=== PATIENT | male | born 1980 | race American Indian/Alaskan Native ===

== ENCOUNTER 2018-11-24 22:16 | Observation (INO) | payer OTHER ==
[2018-11-25] VITALS: BMI 21.4
[2018-11-25 00:51] LABS: BASO # 0.02 K/mm3 (0.0-2.0); BASO % 0.2 % (0.0-3.0); EOS # 0.1 (0.0-0.7); EOS % 1.7 % (1.5-5.0); HEMOGLOBIN 13.9 g/dL (14.0-18.0); LYMPH % 36.5 % (22.0-35.0); MEAN CELL VOLUME 94.5 fl (80.0-105.0); MEAN CORPUSCULAR HEMOGLOBIN 31.7 pg (25.0-35.0); MEAN CORPUSCULAR HGB CONC 33.5 g/dl (31.0-37.0); MEAN PLATELET VOLUME 9.5 fl (7.0-11.0); MONO # 0.6 (0.1-0.6); MONO % 7.8 % (1.0-6.0); RBC 4.39 10^6/uL (3.5-6.1); RED CELL DISTRIBUTION WIDTH 13.5 % (11.5-14.5); WHITE BLOOD COUNT 8.2 10^3/uL (4.5-11.0)
--- NOTE | 2018-11-25 01:07 | ED PDOC ---
Arrival/HPI <EstrellaDariusz - Last Filed: 11/25/18 01:17> - General Historian: Patient, Spouse - History of Present Illness Narrative History of Present Illness (Text): 11/25/18 00:10 Anton Christian is a 38 year old male who presents to the Emergency department c omplaining of 3-4 weeks history of constant left mid abdominal pain, worsened with coughing. Patient noted intermittent bloody stools, described as bright blood mixed with stools. Patient denies any nausea, vomiting, diarrhea, urinary symptoms, fever, chills, injury/trauma, or any other complaints. Patient states he has not had this pain in the past. <Vanessa Foley PA-C - Last Filed: 11/25/18 02:43> - General Chief Complaint: Abdominal Pain Time Seen by Provider: 11/24/18 22:55 Past Medical History - Provider Review Nursing Documentation Reviewed: Yes - Psychiatric Hx Substance Use: Yes <Vanessa Foley PA-C - Last Filed: 11/25/18 02:43> Family/Social History - Physician Review Nursing Documentation Reviewed: Yes Family/Social History: Unknown Family HX Smoking Status: Heavy Smoker > 10 Cigarettes Daily Hx Alcohol Use: Yes Frequency of alcohol use: Socially Hx Substance Use: Yes Substance used: Marijuana <Vanessa Foley PA-C - Last Filed: 11/25/18 02:43> Allergies/Home Meds <Dariusz De La Rosa - Last Filed: 11/25/18 01:17> <Vanessa Foley PA-C - Last Filed: 11/25/18 02:43> Allergies/Adverse Reactions: Allergies No Known Allergies Allergy (Verified 11/24/18 23:59) Home Medications: Home Meds Medication Instructions Recorded Confirmed No Known Home Med 11/24/18 11/24/18 Review of Systems - Physician Review All systems were reviewed & negative as marked: Yes - Review of Systems Constitutional: Normal. absent: Fevers Eyes: Normal ENT: Normal Respiratory: Normal. absent: SOB, Cough Cardiovascular: Normal. absent: Chest Pain Gastrointestinal: Abdominal Pain, Hematochezia Genitourinary Male: Normal. absent: Dysuria, Frequency, Hematuria, Urinary Output Changes Musculoskeletal: Normal. absent: Back Pain, Neck Pain Skin: Normal. absent: Rash Neurological: Normal. absent: Headache, Dizziness Endocrine: Normal Hemo/Lymphatic: Normal Psychiatric: Normal <Vanessa Foley PA-C - Last Filed: 11/25/18 02:43> Physical Exam Vital Signs Temp Pulse Resp BP Pulse Ox 11/25/18 00:15 98.3 F 68 18 118/70 100 <Dariusz De La Rosa - Last Filed: 11/25/18 01:17> Vital Signs Reviewed: Yes Vital Signs Temp Pulse Resp BP Pulse Ox 11/25/18 00:15 98.3 F 68 18 118/70 100 Temperature: Afebrile Blood Pressure: Normal Pulse: Regular Respiratory Rate: Normal Appearance: Positive for: Well-Appearing, Non-Toxic, Comfortable Pain Distress: None Mental Status: Positive for: Alert and Oriented X 3 - Systems Exam Head: Present: Atraumatic, Normocephalic Pupils: Present: PERRL Extroacular Muscles: Present: EOMI Conjunctiva: Present: Normal Mouth: Present: Moist Mucous Membranes Neck: Present: Normal Range of Motion Respiratory/Chest: Present: Clear to Auscultation, Good Air Exchange. No: Respiratory Distress, Accessory Muscle Use Cardiovascular: Present: Regular Rate and Rhythm, Normal S1, S2. No: Murmurs Abdomen: Present: Tenderness (LUQ/left mid abdominal tenderness). No: Distention, Peritoneal Signs Rectal: Present: Normal Rectal Tone, Other (RN Nadine present as artificial insemination technician). No: Rectal Tenderness Back: Present: Normal Inspection Upper Extremity: Present: Normal Inspection. No: Cyanosis, Edema Lower Extremity: Present: Normal Inspection. No: Edema Neurological: Present: GCS=15, CN II-XII Intact, Speech Normal Skin: Present: Warm, Dry, Normal Color. No: Rashes Psychiatric: Present: Alert, Oriented x 3, Normal Insight, Normal Concentration <Vanessa Foley PA-C - Last Filed: 11/25/18 02:43> Medical Decision Making - Lab Interpretations Lab Results: Total Bilirubin 0.4 mg/dL (0.2-1.3) 11/25/18 00:40 AST 35 U/L (17-59) 11/25/18 00:40 ALT 20 U/L (7-56) 11/25/18 00:40 Alkaline Phosphatase 66 U/L (38-126) 11/25/18 00:40 Total Protein 6.9 g/dL (5.8-8.3) 11/25/18 00:40 Albumin 4.2 g/dL (3.0-4.8) 11/25/18 00:40 Globulin 2.6 gm/dL 11/25/18 00:40 Albumin/Globulin Ratio 1.6 (1.1-1.8) 11/25/18 00:40 Lipase 96 U/L (23-300) 11/25/18 00:40 - RAD Interpretation Radiology Orders: 11/25/18 01:14 ABD & PELVIS IV CONTRAST ONLY [CT] Stat - Medication Orders Current Medication Orders: Discontinued Medications Famotidine (Pepcid) 20 mg IVP STAT STA Stop: 11/25/18 00:14 Last Admin: 11/25/18 00:30 Dose: 20 mg IVP Administration Document 11/25/18 00:30 AD (Rec: 11/25/18 00:[address]) Charges for Administration # of IVP Administrations 1 Ketorolac Tromethamine (Toradol) 30 mg IVP STAT STA Stop: 11/25/18 00:13 Last Admin: 11/25/18 00:30 Dose: 30 mg MAR Pain Assessment Document 11/25/18 00:30 AD (Rec: 11/25/18 00:43 AD [place] [id number]-) Pain Reassessment Is this a pain reassessment? No Location Left, Right or Bilateral Left Pain Location Body Site Abdomen Description Intensity of Pain at present 8 Pain Behavior Facial Grimacing IVP Administration Document 11/25/18 00:30 AD (Rec: 11/25/18 00:43 AD [place] [id number]-) Charges for Administration # of IVP Administrations 1 <Dariusz De La Rosa - Last Filed: 11/25/18 01:17> ED Course and Treatment: 11/25/18 00:10 Impression: 38 year old male complaining of left mid abdominal pain and intermittent bloody stools. Plan: -- Labs, lipase -- Urinalysis, urine cultures -- Toradol -- Pepcid -- Reassess and disposition Prior Visits: Notes and results from previous visits were reviewed. Progress Notes: Labs reviewed : all wnl. CT A/P w/ IV contrast : Fluid filled bowels. Ileus vs developing enteritis. Amberly Mccarthy MD 11/25/18 0217. On reevaluation, patient reports pain is controlled at this time, denies any nausea. On exam, patient remains awake alert and oriented 3 in no acute distress. Results d/w the patient, advised the need for further observation considering CT findings, which the patient agrees with. Case d/w Dr. Austin, agrees with plan for observation. Request consult with Dr. Mart, administer IVF and IV antibiotics. Cipro and flagyl IV ordered. hvac residential service technician notified of admission. - Medication Orders Current Medication Orders: Discontinued Medications Famotidine (Pepcid) 20 mg IVP STAT STA Stop: 11/25/18 00:14 Last Admin: 11/25/18 00:30 Dose: 20 mg IVP Administration Document 11/25/18 00:30 AD (Rec: 11/25/18 00:43 AD [facility] Charges for Administration # of IVP Administrations 1 Ketorolac Tromethamine (Toradol) 30 mg IVP STAT STA Stop: 11/25/18 00:13 Last Admin: 11/25/18 00:30 Dose: 30 mg MAR Pain Assessment Document 11/25/18 00:30 AD (Rec: 11/25/18 00:43 AD [facility] Pain Reassessment Is this a pain reassessment? No Location Left, Right or Bilateral Left Pain Location Body Site Abdomen Description Intensity of Pain at present 8 Pain Behavior Facial Grimacing IVP Administration Document 11/25/18 00:30 AD (Rec: 11/25/18 00:43 AD [facility] Charges for Administration # of IVP Administrations 1 <Vanessa Foley PA-C - Last Filed: 11/25/18 02:43> - PA / OPERATOR [employer]OUND [employer] / Resident Statement LILY has reviewed & agrees with the documentation as recorded. LILY has examined the patient and agrees with the treatment plan. <Dariusz De La Rosa - Last Filed: 11/25/18 01:17> - PA / OPERATOR [employer] DEFENCE / Resident Statement LILY has reviewed & agrees with the documentation as recorded. - Scribe Statement The provider has reviewed the documentation as recorded by the Valentin Oswald Provider Scribe Attestation: All medical record entries made by the Scribe were at my direction and personally dictated by me. I have reviewed the chart and agree that the record accurately reflects my personal performance of the history, physical exam, medical decision making, and the department course for this patient. I have also personally directed, reviewed, and agree with the discharge instructions and disposition. <Vanessa Foley PA-C - Last Filed: 11/25/18 02:43> Disposition/Present on Arrival <Dariusz De La Rosa - Last Filed: 11/25/18 01:17> - Present on Arrival Any Indicators Present on Arrival: No History of DVT/PE: No History of Uncontrolled Diabetes: No Urinary Catheter: No History of Decub. Ulcer: No History Surgical Site Infection Following: None - Disposition Have Diagnosis and Disposition been Completed?: Yes Disposition Time: 02:20 Patient Plan: Observation <Vanessa Foley PA-C - Last Filed: 11/25/18 02:43> - Disposition Diagnosis: Abdominal pain, Ileus, Enteritis Disposition: HOSPITALIZED Patient Problems: Current Active Problems Problem Status Onset Abdominal pain Acute Condition: STABLE Forms: [employer] (Chinese)
[2018-11-25 01:08] LABS: ALB/GLOB RATIO 1.6 (1.1-1.8); ALBUMIN 4.2 g/dL (3.0-4.8); ALT/SGPT 20 U/L (7-56); AST/SGOT 35 U/L (17-59); BLOOD UREA NITROGEN 14 mg/dL (7-21); CALCIUM 9.2 mg/dL (8.4-10.5); GFR NON-AFRICAN AMERICAN > 60; LIPASE 96 U/L (23-300)
[2018-11-25] MEDS ORDERED: Iohexol 350 MG/100 ML VIAL ONE (01:22)
[2018-11-25 01:37] LABS: INR 1.08; PARTIAL THROMBOPLASTIN TIME 35.7 Seconds (26.9-38.3)
[2018-11-25 01:58] LABS: URINE BILIRUBIN NEGATIVE (NEGATIVE); URINE BLOOD NEGATIVE (NEGATIVE); URINE GLUCOSE (UA) NEGATIVE (NEGATIVE); URINE LEUKOCYTE ESTERASE NEGATIVE Leu/uL (NEGATIVE); URINE PROTEIN NEGATIVE mg/dL (<30 mg/dL); URINE UROBILINOGEN 0.2 E.U./dL (<1 E.U./dL)
[2018-11-25 02:01] LABS: URINE APPEARANCE CLEAR (CLEAR); URINE COLOR YELLOW (YELLOW)
[2018-11-25] MEDS ORDERED: metroNIDAZOLE IV 500 mg/100 ml 500 MG/100 ML BAG IVPB STA (02:37)
[2018-11-25] MEDS ORDERED: Ciprofloxacin 400mg/200ml D5W 400 MG/200 ML BAG IVPB STA (02:38)
--- NOTE | 2018-11-25 02:43 | CP.PCM.HP ---
History of Present Illness - History of Present Illness History of Present Illness: PGY1 Medicine History and Physical Exam Note for Dr. Austin CC: abdominal pain x 3 weeks Mr. Anton Christian is a 38-year-old male with no past medical history, surgical history of hernia repair at age 12yo, who presents to the Emergency department complaining of 3-4 weeks history of constant left mid abdominal pain, "crampy" in quality, 8/10 in severity, worsened with coughing. Patient noted intermittent, bright-red bloody stools. Patient denies any previous episodes. ROS is otherwise unremarkable for chest pain, shortness of breath, nausea, vomiting, diarrhea, dysuria, fever, chills, numbness/tingling in lower extremities, and/or headache. Patient admits to ETOH on weekends (1 beer/setting), and marijuana use. Otherwise denies recreational drugs. Present on Admission - Present on Admission Any Indicators Present on Admission: No History of DVT/PE: No History of Uncontrolled Diabetes: No Urinary Catheter: No Decubitus Ulcer Present: No Review of Systems - Review of Systems All systems: reviewed and no additional remarkable complaints except (as per HPI) Past Patient History - Past Social History Smoking Status: Heavy Smoker > 10 Cigarettes Daily - PSYCHIATRIC Hx Substance Use: Yes - SURGICAL HISTORY Hx Surgeries: No Meds Allergies/Adverse Reactions: Allergies Allergy/AdvReac Type Severity Reaction Status Date / Time No Known Allergies Allergy Verified 11/24/18 23:59 Physical Exam - Constitutional Appears: Non-toxic, No Acute Distress - Head Exam Head Exam: ATRAUMATIC, NORMAL INSPECTION, NORMOCEPHALIC - Eye Exam Eye Exam: EOMI, Normal appearance - ENT Exam ENT Exam: Mucous Membranes Moist, Normal Exam - Neck Exam Neck exam: Positive for: Normal Inspection - Respiratory Exam Respiratory Exam: NORMAL BREATHING PATTERN - Cardiovascular Exam Cardiovascular Exam: REGULAR RHYTHM, +S1, +S2 - GI/Abdominal Exam GI & Abdominal Exam: Normal Bowel Sounds, Soft, Tenderness (mid-left abdomen ). absent: Distended, Firm, Guarding, Rebound, Rigid - Rectal Exam Additional comments: guiac negative in ED - Extremities Exam Extremities exam: Positive for: normal inspection - Back Exam Back exam: NORMAL INSPECTION - Neurological Exam Neurological exam: Alert, CN II-XII Intact, Oriented x3 - Psychiatric Exam Psychiatric exam: Normal Affect, Normal Mood - Skin Skin Exam: Dry, Intact, Normal Color, Warm Results - Vital Signs Recent Vital Signs: Last Vital Signs Temp 98.3 F 11/25/18 00:15 Pulse 68 11/25/18 00:15 Resp 18 11/25/18 00:15 BP 118/70 11/25/18 00:15 Pulse Ox 100 11/25/18 00:15 - Labs Result Diagrams: 11/25/18 00:40 11/25/18 00:40 Labs: Laboratory Results - last 24 hr 11/25/18 11/25/18 11/25/18 00:40 00:40 00:40 WBC 8.2 RBC 4.39 Hgb 13.9 L Hct 41.5 L MCV 94.5 MCH 31.7 MCHC 33.5 RDW 13.5 Plt Count 190 MPV 9.5 Neut % (Auto) 53.8 Lymph % (Auto) 36.5 H Green % (Auto) 7.8 H Eos % (Auto) 1.7 Baso % (Auto) 0.2 Lymph # (Auto) 3.0 Green # (Auto) 0.6 Eos # (Auto) 0.1 Baso # (Auto) 0.02 Absolute Neuts (auto) 4.42 PT 12.0 INR 1.08 APTT 35.7 Sodium 140 Potassium 3.7 Chloride 103 Carbon Dioxide 30 Anion Gap 11 BUN 14 Creatinine 0.9 Est GFR ( Amer) > 60 Est GFR (Non-Af Amer) > 60 Random Glucose 79 Calcium 9.2 Magnesium 2.0 Total Bilirubin 0.4 AST 35 ALT 20 Alkaline Phosphatase 66 Total Protein 6.9 Albumin 4.2 Globulin 2.6 Albumin/Globulin Ratio 1.6 Lipase 96 Urine Color Urine Appearance Urine pH Ur Specific Alto Urine Protein Urine Glucose (UA) Urine Ketones Urine Blood Urine Nitrate Urine Bilirubin Urine Urobilinogen Ur Leukocyte Esterase 11/25/18 01:48 WBC RBC Hgb Hct MCV MCH MCHC RDW Plt Count MPV Neut % (Auto) Lymph % (Auto) Green % (Auto) Eos % (Auto) Baso % (Auto) Lymph # (Auto) Green # (Auto) Eos # (Auto) Baso # (Auto) Absolute Neuts (auto) PT INR APTT Sodium Potassium Chloride Carbon Dioxide Anion Gap BUN Creatinine Est GFR ( Amer) Est GFR (Non-Af Amer) Random Glucose Calcium Magnesium Total Bilirubin AST ALT Alkaline Phosphatase Total Protein Albumin Globulin Albumin/Globulin Ratio Lipase Urine Color Yellow Urine Appearance Clear Urine pH 6.0 Ur Specific [place] >= 1.030 Urine Protein Negative Urine Glucose (UA) Negative Urine Ketones Negative Urine Blood Negative Urine Nitrate Negative Urine Bilirubin Negative Urine Urobilinogen 0.2 Ur Leukocyte Esterase Negative Assessment & Plan - Assessment and Plan (Free Text) Assessment: Left/ mid abdominal pain likely 2/2 enteritis - Admit for observation - GI (Dr. Mart) consulted; recommendations appreciated - Patient afebrile - No leukocytosis - Guiac negative in ED - Urinalysis unremarkable - No electrolyte abnormalities on CMP - Hgb=13.9 Hct=41.5 - CT abdomen/pelvis: CT A/P w/ IV contrast : Fluid filled bowels. Ileus vs dev eloping enteritis. Abmerly Mccarthy MD 11/25/18 [id number]. - In ED: Toradol and pepcid administered - IVF @ 200cc/hr; continue IVF - Continue IV antibiotics: Cipro and flagyl - Keep NPO - F/U CBC, CMP, Lipase - F/U UDS Ppx: - GI: Pepcid daily - DVT: SCD Discussed with Dr. Norman Granda PGY1
[2018-11-25] MEDS ORDERED: Sodium Chloride 0.9% 1,000 ML IV SCH (02:45)
[2018-11-25 05:00] LABS: BARBITURATES, UR NEGATIVE (NEGATIVE); BENZODIAZEPINES, UR NEGATIVE (NEGATIVE); OPIATES, UR NEGATIVE (NEGATIVE); PHENCYCLIDINE, UR NEGATIVE (NEGATIVE)
[2018-11-25] MEDS ORDERED: Morphine 2 mg/ml ISec IVP PRN (06:42)
[2018-11-25] MEDS ORDERED: Lactated Ringer's 1,000 ML IV SCH (06:45)
[2018-11-25] MEDS: metroNIDAZOLE IV 500 mg/100 ml 500 MG/100 ML BAG IVPB SCH ×3 (07:37→21:46)
[2018-11-25] MEDS: Piperacillin/Tazobact 3.375 gm 100 ML IVPB SCH ×2 (08:41→14:10)
[2018-11-25 09:37] LABS: AMYLASE 117 U/L (35-125); LIPASE 178 U/L (23-300)
[2018-11-25] MEDS: POLYETHYLENE GLYCOL 3350 17 GM/Dose PACKET PO SCH ×2 (10:58→18:14)
[2018-11-25] MEDS: Enoxaparin 40 mg Syringe SC SCH (10:58)
--- NOTE | 2018-11-25 12:50 | CT ---
Date of service: 11/25/2018 PROCEDURE: CT Abdomen and Pelvis with contrast HISTORY: L abd pain COMPARISON: None available. TECHNIQUE: Contrast dose: 100 mL Omnipaque 350 IV Radiation dose: Total exam DLP = 353.53 mGy-cm. This CT exam was performed using one or more of the following dose reduction techniques: Automated exposure control, adjustment of the mA and/or kV according to patient size, and/or use of iterative reconstruction technique. FINDINGS: LOWER THORAX: No visible consolidation, pleural effusion, or pneumothorax. LIVER: Small to characterize 5 mm right hepatic lobe hypodensity, statistically likely cysts or hemangioma. The GALLBLADDER AND BILE DUCTS: Unremarkable. PANCREAS: Unremarkable. SPLEEN: Unremarkable. ADRENALS: Unremarkable. KIDNEYS AND URETERS: The kidneys enhance symmetrically. No hydronephrosis or obstructing calculus identified. VASCULATURE: No aortic aneurysm. No atherosclerotic calcification or mural plaque present. BOWEL: Stomach is nondistended. Lack of oral contrast limits evaluation for bowel pathology. Bowel loops appear within normal limits of caliber without evidence of obstruction. APPENDIX: The appendix appears within normal limits of caliber. No secondary signs of acute appendicitis. PERITONEUM: No significant free fluid. No definite free air. LYMPH NODES: No bulky adenopathy identified. BLADDER: Unremarkable. REPRODUCTIVE: Unremarkable. BONES: No acute osseous abnormality is detected. OTHER FINDINGS: None. IMPRESSION: No acute findings identified. Preliminary impression was provided by [employer].
--- NOTE | 2018-11-25 12:51 | CON ---
DATE OF CONSULTATION: 11/25/2018 GASTROENTEROLOGY CONSULTATION REQUESTING PHYSICIAN: Dr. Austin. REASON FOR CONSULTATION: I have been asked to see this 38-year-old male with 2-week history of increasing diffuse abdominal pain associated with cramps. He denies any rectal bleeding, nausea, vomiting or diarrhea. He denies any recent travel or ingestion of unusual foods. He does consume alcohol on a social basis and uses marijuana on a recreational basis. He denies any recent travel. He denies hematemesis, melena, or rectal bleeding. PAST MEDICAL HISTORY: Unremarkable. PAST SURGICAL HISTORY: Unremarkable. SOCIAL HISTORY: He has smokes up to half pack of cigarettes per day. Consumes alcohol socially. He also uses marijuana. REVIEW OF SYSTEMS: Fourteen-point review of systems is notable for crampy abdominal pain. PHYSICAL EXAMINATION: GENERAL: Well-developed male, lying in bed, in no acute distress. VITAL SIGNS: Reveal a temperature of 97.5, blood pressure 111/73, heart rate of 55. HEENT: Reveal sclerae to be white. Conjunctivae pink. NECK: Supple. CHEST: Lungs are clear. HEART: Exam reveals regular rate and rhythm. ABDOMEN: Soft, nontender. No mass. EXTREMITIES: Show no edema. LABORATORY DATA: Reveal a white blood cell count of 8.2, hemoglobin 13.9. Chemistries reveal normal electrolytes. Urinalysis is negative. Toxicology screen is positive for cannabinoids. CT scan of the abdomen and pelvis reveals nonspecific distention of the small bowel with increased stool in the right colon. IMPRESSION: A 38-year-old male with increasing abdominal pain described as crampy over 2 weeks with abnormal white blood cell count and CT scan of the abdomen and pelvis showing possible ileus and increased stool in the right colon. His abdominal pain may be is related to fecal retention. White blood cell count is normal. RECOMMENDATIONS: 1. We will start the patient on MiraLax 17 g three times a day. 2. We will start the patient on clear liquid diet. If tolerated without any further abdominal pain, diet can be advanced, and he can be discharged home with outpatient followup. Fareed Mart MD [facility] # [id number]
[2018-11-25] MEDS ORDERED: Ciprofloxacin 400mg/200ml D5W 400 MG/200 ML BAG IVPB SCH (16:00)
[2018-11-25] MEDS ORDERED: Magnesium Citrate Oral SOL (300 ml) PO ONE (18:37)
[2018-11-25 22:59] VITALS: O2SAT 98
[2018-11-26] MEDS: metroNIDAZOLE IV 500 mg/100 ml 500 MG/100 ML BAG IVPB SCH (05:28)
[2018-11-26 07:46] VITALS: BP 106/71; PULSE 60; RESP 20; TEMP 98.4
[2018-11-26 08:00] LABS: ALB/GLOB RATIO 1.5 (1.1-1.8); ALBUMIN 3.8 g/dL (3.0-4.8); ALT/SGPT 23 U/L (7-56); AST/SGOT 32 U/L (17-59); BILIRUBIN,DIRECT 0.1 mg/dL (0.0-0.4); CALCIUM 8.9 mg/dL (8.4-10.5); GFR NON-AFRICAN AMERICAN > 60
[2018-11-26 08:01] LABS: BLOOD UREA NITROGEN 9 mg/dL (7-21)
[2018-11-26 08:19] LABS: BASO # 0.03 K/mm3 (0.0-2.0); BASO % 0.5 % (0.0-3.0); EOS # 0.1 (0.0-0.7); EOS % 2.1 % (1.5-5.0); HEMOGLOBIN 14.3 g/dL (14.0-18.0); LYMPH # 2.3 (1.2-3.4); LYMPH % 41.3 % (22.0-35.0); MEAN CELL VOLUME 94.2 fl (80.0-105.0); MEAN CORPUSCULAR HEMOGLOBIN 31.7 pg (25.0-35.0); MEAN CORPUSCULAR HGB CONC 33.6 g/dl (31.0-37.0); MEAN PLATELET VOLUME 9.9 fl (7.0-11.0); MONO # 0.5 (0.1-0.6); MONO % 9.1 % (1.0-6.0); RBC 4.51 10^6/uL (3.5-6.1); RED CELL DISTRIBUTION WIDTH 13.5 % (11.5-14.5); WHITE BLOOD COUNT 5.6 10^3/uL (4.5-11.0)
[2018-11-26] MEDS: Enoxaparin 40 mg Syringe SC SCH (09:47)
[2018-11-26] MEDS: POLYETHYLENE GLYCOL 3350 17 GM/Dose PACKET PO SCH (09:47)
--- NOTE | 2018-11-26 11:32 | PN ---
DATE: 11/26/2018 SUBJECTIVE: The patient feels better. He had multiple bowel movements. He denies any abdominal pain. He is asking for food and possibly discharge home. OBJECTIVE: VITAL SIGNS: Reveal temperature of 98.4, blood pressure 106/71, heart rate of 60. HEENT: Reveal sclerae to be white. Conjunctivae pink. NECK: Supple. CHEST: Lungs are clear. HEART: Reveals regular rate and rhythm. ABDOMEN: Soft, nontender. No mass. EXTREMITIES: Show no edema. LABORATORY DATA: Reveal white blood cell count 5.6, hemoglobin 14.3. Chemistries reveal normal electrolytes. IMPRESSION: A 38-year-old male with increasing abdominal pain for 2 weeks, found to have a ileus with increased stool in the right colon on CAT scan. He has improved with several doses of MiraLax. RECOMMENDATIONS: 1. We will advance to a soft bland diet. 2. We will ask the patient to continue taking MiraLax 17 g three times a day. Fareed Mart MD
--- NOTE | 2018-11-26 22:30 | DS ---
FINAL PROGRESS NOTE AND DISCHARGE SUMMARY HOSPITAL COURSE: The patient was seen in the morning after evaluation by Dr. Fareed Mart. The patient tolerated clear liquid diet yesterday and the patient had multiple bowel movement. The patient is requesting regular diet which is ordered by Gastroenterology. Overnight nurse's notes were reviewed. No adverse events were noted. PHYSICAL EXAMINATION: VITAL SIGNS: In the last 24 hours, T-max 98.3 and 98.4, pulse 60, blood pressure 106/71, respiration 20, and O2 sat 98%. HEENT: Head is normocephalic and atraumatic. [place] conjunctivae. Anicteric sclerae. No oropharyngeal lesion. NECK: No neck rigidity. CHEST: Kyphosis. LUNGS: Shows no audible rales, crackles or wheezing. CARDIOVASCULAR: S1 and S2. No audible murmur, gallop or rub. ABDOMEN: Soft. Positive bowel sounds. No palpable hepatosplenomegaly. GENITALIA: Male. RECTAL: Examination is deferred. EXTREMITIES: Shows no pitting edema, no calf numbness, no Homans' sign. NEUROLOGIC: The patient is alert, awake, oriented x3, is able to move upper and lower extremity without assistance. Gait examination is independent. VASCULAR: Palpable pulses. DIAGNOSTIC DATA: CBC from 11/26/2018 is within normal limit. Chemistry; LFTs are within normal limits. Urine drug screen positive for cannabinoids. FINAL IMPRESSION PLAN AND DISCHARGE DIAGNOSES: 1. Ileus, probably secondary to fecal stasis, fecal retention and colonic fecal stasis. 2. Diverticulosis of the colon. 3. Possible marijuana induced abdominal pain and fecal stasis and constipation. 4. Possible right hepatic cyst or hemangioma. DISCHARGE INSTRUCTIONS: 1. Plan at this time, the patient is to be discharged home after the patient is tolerating diet ordered by GI and cleared by Gastroenterology. 2. Discharge follow up with Dr. Austin within 1 week.\ 3. Discharge restrictions; stop smoking, stop recreational drug use, stop alcohol. Copy of high-fiber diet given to the patient upon discharge. Discharge followup with Dr. Austin within 1 week. DISCHARGE MEDICATIONS: Amitiza 24 mcg twice a day and Dexilant 60 mg daily. Time spent in the discharge process 45 minutes. Dictated and electronically signed, not read. Shaji MD [facility] # [id number]
== END 2018-11-26 14:26 | disposition home or self-care (01) ==
LOC: ED 22:16 → ERH 11-25 02:39 → 5RNO 11-25 04:21
PROVIDERS: ADMIT Internal Medicine; ATTEND Internal Medicine
DX: K56.7 Ileus, unspecified (principal); K57.30 Diverticulosis of large intestine without perforation or abscess without bleeding; F17.210 Nicotine dependence, cigarettes, uncomplicated; F12.90 Cannabis use, unspecified, uncomplicated
CPT/HCPCS: 36415; 74177; 80053; 80324; 80345; 80346; 80349; 80353; 80358; 80361; 81003; 82150; 82248; 83690; 83735; 83992; 84100; 85025; 85610; 85730; 87040; 87045; 87086; 96374; 99284; C9113; G0378; J0744; J1650; J1885; J2543; J7030; J7120; Q9967